=== PATIENT | male | born 1980 | race Caucasian/White ===

== ENCOUNTER 2018-10-25 17:42 | Emergency (ER) | payer SELFPAY ==
[~2018-10-25] VITALS: Ht 175.3 cm; Wt 113.4 kg
[2018-10-25 17:42] VITALS: BP_SYST 166
--- NOTE | 2018-10-25 17:42 | NUR ---
BROUGHT IN BY [facility]ST[facility] GRANT AND PLACED IN CHAIR, TRIAGED. REPORT GIVEN TO ALLYSSA
--- NOTE | 2018-10-25 18:12 | NUR ---
ER Dr. GALVEZ at bedside examining patient.
--- NOTE | 2018-10-25 18:20 | NUR ---
PATIENT LEAVING TO X RAY IN STABLE CONDITION.
--- NOTE | 2018-10-25 18:35 | NUR ---
PATIENT BACK FROM X RAY IN STABLE CONDITION.
--- NOTE | 2018-10-25 18:42 | NUR ---
PATIENT CAME IN COMPLAINING OF PAIN IN RIGHT SHOULDER AND LEFT WRIST. PATIENT COMPLAINING OF 3/10 PAIN. PATIENT HAS SOME MINOR INJURIES FROM BEING DETAINED BY OFFICERS. PATIENT DENIES HEAD INJURY OR ALOC. PATIENT DENIES SOB, NAUSEA, AND VOMITING. PATIENT ALERT AND ORIENTED X4.
[2018-10-25] MEDS ORDERED: KETOROLAC TROMETHAMINE 60 MG/2 ML VIAL IM ONE (19:00)
[2018-10-25 20:05] VITALS: BP_SYST 102
--- NOTE | 2018-10-25 20:10 | NUR ---
Patient given written and verbal discharge instructions and verbalizes understanding. ER MD discussed with patient the results and treatment provided. Patient in stable condition. ID arm band removed. No Rx given. Patient educated on pain management and to follow up with PMD. Pain Scale 3/10 tolerable for patient . Opportunity for questions provided and answered. Medication side effect fact sheet provided.
== END 2018-10-25 20:10 ==
LOC: SED 17:42
DX: S46.911A Strain of unspecified muscle, fascia and tendon at shoulder and upper arm level, right arm, initial encounter (principal); S66.912A Strain of unspecified muscle, fascia and tendon at wrist and hand level, left hand, initial encounter; X58.XXXA Exposure to other specified factors, initial encounter; Y93.89 Activity, other specified; Y92.89 Other specified places as the place of occurrence of the external cause; Y99.8 Other external cause status
CPT/HCPCS: 73030; 73110; 96372; 99283; J1885